=== PATIENT | male | born 1950 | race Two or more races ===

== ENCOUNTER 2018-07-25 02:10 | Inpatient (IN) | payer OTHER, MEDICAID ==
[~2018-07-25] VITALS: Ht 172.7 cm; Wt 133.8 kg
--- NOTE | 2018-07-25 02:15 | NUR ---
PT BIBRA FROM HOME COMPLAINING OF MIDSTERNAL CHEST PAIN RADIATING TO LEFT SHOULDER X3 HOURS DUPLICATING MACHINE MECHANIC. PT DESCRIBES PAIN PRESSURE AND TIGHT. PT RECEIVED 162MG ASPIRIN AND 3 SPRAY NITRO BY RA DUPLICATING MACHINE MECHANIC WITH NO RELIEF OF SYMPTOMS. PT APPEARS UNCOMFORTABLE WITH LABORED BREATHING. PT DENIES N/V/D, HEADACHE, DIZZINESS, ABDOMINAL PAIN. PT AAOX4. SKIN WARM AND INTACT. PLACED IN GOWN AND ON CONTINUOUS PAPER WOOD CUTTER. WILL CONTINUE TO MONITOR.
--- NOTE | 2018-07-25 02:18 | NUR ---
MD AT BEDSIDE FOR EVALUATION
[2018-07-25] MEDS ORDERED: NITROGLYCERIN PACKET 1 GM PACKET ONE (02:25)
[2018-07-25] MEDS ORDERED: ONDANSETRON HCL/PF 4 MG/2 ML VIAL ONE (02:25)
[2018-07-25] MEDS ORDERED: MORPHINE SULFATE INJ 10 MG/ML DISP.SYRIN ONE (02:25)
--- NOTE | 2018-07-25 02:25 | NUR ---
MAGNETIC RESONANCE IMAGING COORDINATOR AT BEDSIDE FOR BLOOD DRAW
[2018-07-25] MEDS ORDERED: NITROGLYCERIN PACKET 1 GM PACKET TD ONE (02:30)
[2018-07-25] MEDS ORDERED: MORPHINE SULFATE INJ 2 MG/ML DISP.SYRIN IV ONE (02:30)
[2018-07-25] MEDS ORDERED: ONDANSETRON HCL/PF - ER 4 MG/2 ML VIAL IV ONE (02:30)
[2018-07-25 02:39] LABS: BASOPHILS % (AUTO) 0.5 % (0.0-2.0); EOSINOPHILS % (AUTO) 4.9 % (0.0-6.0); HEMATOCRIT 24 % (39-51); LYMPHOCYTES # (AUTO) 0.4 /CMM (0.8-4.8); LYMPHOCYTES % (AUTO) 5.1 % (20.0-44.0); MEAN CORPUSCULAR HGB CONC 34 g/dl (31.0-36.0); MEAN CORPUSCULAR VOLUME 91 fL (80-96); MONOCYTES # (AUTO) 0.6 /CMM (0.1-1.30); NEUTROPHILS # (AUTO) 7.2 /CMM (1.8-8.9); NEUTROPHILS % (AUTO) 82.5 % (43.0-81.0); PLATELET COUNT (AUTO) 240 /CMM (150-450); RED BLOOD CELL COUNT(AUTO) 2.59 MIL/uL (4.5-6.0); WHITE BLOOD COUNT (AUTO) 8.7 K/uL (4.3-11.0)
--- NOTE | 2018-07-25 02:54 | NUR ---
RADIOLOGY AT BEDSIDE FOR CXR
[2018-07-25 03:01] LABS: ALBUMIN 2.8 g/dL (3.4-5.0); BILIRUBIN,DIRECT 0.1 mg/dL (0.0-0.2); BILIRUBIN,TOTAL 0.7 mg/dL (0.2-1.0); CALCIUM, SERUM 8.3 mg/dL (8.5-10.1); TOTAL PROTEIN, SERUM 6.9 g/dL (6.4-8.2)
[2018-07-25] MEDS ORDERED: FUROSEMIDE (03:16)
[2018-07-25 03:22] LABS: MAGNESIUM 2.2 mg/dL (1.8-2.4); PHOSPHORUS 6.9 mg/dL (2.5-4.9)
[2018-07-25] MEDS ORDERED: ENOXAPARIN SODIUM 80 MG/0.8 ML DISP.SYRIN SQ ONE (03:28)
[2018-07-25] MEDS ORDERED: ENOXAPARIN SODIUM 30 MG/0.3 ML DISP.SYRIN ONE (03:28)
[2018-07-25] MEDS ORDERED: ENOXAPARIN SODIUM 30 MG/0.3 ML DISP.SYRIN SQ ONE (03:30)
--- NOTE | 2018-07-25 03:39 | NUR ---
RECEIVED VERBAL AUTH FROM TEODORA TIRADO WELDING FOREMAN TO ADMIT PT HERE AT [facility]. "THE SYSTEM IS DOWN AND CANNOT GIVE AUTH NUMBER RIGHT NOW BUT WILL GIVE IT WHEN SYSTEM IS BACK ON".
--- NOTE | 2018-07-25 03:40 | NUR ---
DR. PATE ON THE PHONE WITH DR. REYES
--- NOTE | 2018-07-25 03:55 | NUR ---
DUPLEX VENOUS AT BEDSIDE
[2018-07-25] MEDS ORDERED: FUROSEMIDE 20 MG/2 ML VIAL IV SCH (04:00)
--- NOTE | 2018-07-25 04:07 | NUR ---
GAVE REPORT TO ALEJANDRA ROBLEDO FOR LEXI
--- NOTE | 2018-07-25 04:33 | NUR ---
PT TRANSFERRED PER [facility]
[2018-07-25 04:50] VITALS: BP 152/87
[2018-07-25] MEDS ORDERED: ACETAMINOPHEN 325 MG TABLET PO PRN (05:00)
[2018-07-25] MEDS: METOPROLOL TARTRATE 50 MG TABLET PO SCH ×3 (05:00→21:00)
--- NOTE | 2018-07-25 05:00 | NUR ---
EPOXY COATINGS INSTALLER ADMITTING NOTES RECEIVED REPORT FROM MANJU ROBLEDO. PATIENT ADMITTED TO ROOM 103 W/ DX RENAL FAILURE UNDER CARE OF DR REYES. PATIENT A/A/O X3, ABLE TO MAKE NEEDS KNOWN. BREATHING EVEN & UNLABORED, TOLERATING O2 @ 2LPM VIA NC. C/O OF NON-RADIATING CHEST PAIN W/ PAIN LEVEL 9/10. DESCRIBED IT PRESSURE AND TIGHTNESS. SINUS TACH NOTED ON TELE MONITOR W/ HR 116. NITRO PATCH NOTED ON PATIENT & PAIN MED TO BE GIVEN. DENIES ANY OTHER PAIN. DENIES NAUSEA OR DIZZINESS. LEFT AC IV #20 INTACT & PATENT W/ DRESSING CDI. PATIENT ABLE TO USE URINAL. ORIENTED TO STAFF & ROOM. SAFETY MEASURES IN PLACE W/ SIDE RAILS UP & BED ALARM ON. INSTRUCTED TO USE CALL LIGHT FOR ASSISTANCE. WILL CONTINUE TO MONITOR.
[2018-07-25] MEDS: HYDROCODONE/APAP 5/325MG 1 EACH TABLET PO PRN ×2 (05:20→15:08)
--- NOTE | 2018-07-25 05:30 | NUR ---
COMMERCIAL CONSTRUCTION ESTIMATOR NOTES SPOKE TO DR REYES REGARDING PATIENT'S PAIN LEVEL & ASKED FOR ADDITIONAL PAIN MEDICATION. RECEIVED NEW ORDER FOR NORCO 5-325 MG PRN Q4H. ALSO INFORMED DR REYES OF PATIENT'S SENSITIVITY TO ASPIRIN & REFUSES TO CONTINUE TAKING ASPIRIN DURING HOSPITAL STAY. PER DR REYES, OK TO DC W/ NO ADDITIONAL MEDICATION ORDERS.
[2018-07-25 07:32] LABS: BASOPHILS % (AUTO) 0.6 % (0.0-2.0); EOSINOPHILS % (AUTO) 1.7 % (0.0-6.0); HEMATOCRIT 23 % (39-51); HEMOGLOBIN 7.6 g/dL (13.5-17.5); LYMPHOCYTES # (AUTO) 0.4 /CMM (0.8-4.8); LYMPHOCYTES % (AUTO) 4.7 % (20.0-44.0); MEAN CORPUSCULAR HGB CONC 34 g/dl (31.0-36.0); MEAN CORPUSCULAR VOLUME 91 fL (80-96); MONOCYTES # (AUTO) 0.7 /CMM (0.1-1.30); MONOCYTES % (AUTO) 8.4 % (2.0-12.0); NEUTROPHILS # (AUTO) 7.4 /CMM (1.8-8.9); NEUTROPHILS % (AUTO) 84.6 % (43.0-81.0); PLATELET COUNT (AUTO) 213 /CMM (150-450); RED BLOOD CELL COUNT(AUTO) 2.47 MIL/uL (4.5-6.0); WHITE BLOOD COUNT (AUTO) 8.7 K/uL (4.3-11.0)
[2018-07-25 07:51] LABS: CALCIUM, SERUM 8.4 mg/dL (8.5-10.1); CREATININE 5.7 mg/dL (0.6-1.3); POTASSIUM 4.6 mmol/L (3.5-5.1)
--- NOTE | 2018-07-25 07:53 | NUR ---
RN AM SHIFT NOTE RECEIVED PATIENT FROM PM NURSE, COMPLAINT OF CHEST PAIN, AWAKE ALERT AND ORIENTED X4. WILL SPEAK TO DR. REYES REGARDING PAIN, AWAITING HOME MED LIST FROM . FOLLOW UP WITH MARIEL REGARDING REPLACEMENT OF ASPRIN REGIMEN FOR PATIENT.
[2018-07-25 08:00] VITALS: BP 150/112
[2018-07-25] MEDS ORDERED: ONDANSETRON HCL/PF 4 MG/2 ML VIAL IV PRN (09:00)
[2018-07-25] MEDS ORDERED: ASPIRIN EC 81 MG TABLET.DR PO SCH (09:00)
[2018-07-25] MEDS: AMLODIPINE BESYLATE 2.5 MG TABLET PO SCH (09:31)
[2018-07-25] MEDS: HYDROMORPHONE INJ 2 MG/ML DISP.SYRIN IV PRN (09:44)
[2018-07-25] MEDS: CEFTRIAXONE 1 G in IV D5W 50 ML IV SCH (09:48)
--- NOTE | 2018-07-25 10:41 | NUR ---
WOUND CARE CONSULT: PT PRESENTS WITH REDNESS AND SWELLING TO BILATERAL LOWER LEGS WITH ESCHAR TO RT LATERAL FOOT AND DRY LESIONS TO LEFT ANTERIOR LOWER LEG, PRESENT ON ADMISSION. RECOMMEND DPM CONSULT. PT IS INDEPENDENT WITH BED MOBILITY AND CONTINENT. DISCUSSED SKIN PROTECTION AND CARE WITH NURSING STAFF. LEGS ELEVATED. WILL SEE PRN. SHETH IN AGREEMENT WITH PLAN OF CARE. Addendum: 07/25/18 at 1043 by CLIFFORD OLIVERA Amended: Links added. Addendum: 07/25/18 at 1044 by CLIFFORD AZULU PT DEMONSTRATES ABILITY TO TURN AND RESPOSITION IN BED AND STATES DOES NOT NEED BARIATRIC BED. PT ON GALINA ISOFLEX LOW AIRLOSS BED.
[2018-07-25] MEDS ORDERED: BUMETANIDE INJ 4 MG in IV NS 0.9% 24 ML IV ONE (11:00)
[2018-07-25] MEDS ORDERED: EPOETIN ALFA (20,000 UNIT) 20,000 UNIT/ML VIAL SQ ONE (11:00)
[2018-07-25] MEDS: AZITHROMYCIN 500 MG in IV D5W 250 ML IV SCH (11:04)
[2018-07-25 11:22] LABS: IRON, SERUM 19 ug/dl (50-175); TOTAL IRON BINDING CAPACITY 260 ug/dl (250-450)
[2018-07-25] MEDS: METOLAZONE 2.5 MG TABLET PO SCH (11:34)
[2018-07-25 12:00] VITALS: BP 110/76
[2018-07-25] MEDS: SEVELAMER CARBONATE 800 MG TABLET PO SCH ×2 (12:02→17:00)
[2018-07-25 16:00] VITALS: BP 105/52
--- NOTE | 2018-07-25 18:30 | NUR ---
TRAM DRIVER CLOSING NOTES PT IS LYING ON BED.STRICT I&O SHOULD BE MONITOR.ALERT/ORIENTED X3.WITH NC 2L O2 CONTINUOUSLY.IV LINE CHANGED TO LEFT HAND G22,SITE IS CLEAN AND DRY.NO INFILTRATION NOTED.ENDORSED TO FIRING PIN GAUGER RN FOR LEXI.
[2018-07-25 20:00] VITALS: BP 116/81
[2018-07-26] VITALS (7 sets, daily range): BP systolic 101–129; BP diastolic 60–91
--- NOTE | 2018-07-26 02:27 | NUR ---
TELE-1/CAPPER MACHINE OPERATOR REPORT TO [facility] FOR CONT OF CARE. Addendum: 07/26/18 at 0228 by IDRIS MCKEON LVN REPORT TO [facility] FOR CONT OF CARE.
--- NOTE | 2018-07-26 02:38 | NUR ---
FISH LIVER SORTER NOTE PATIENT RECEIVED IN BED SLEEPING, BUT EASILY AWOKEN. PATIENT HAS NO C/O AT THIS TIME, JUST WISHES TO SLEEP. PATIENT ST ON THE MONITOR 114, PATIENT DENIES CHEST PAIN. RN WILL CONTINUE TO MONITOR PATIENT.
--- NOTE | 2018-07-26 06:54 | NUR ---
SHOP TAILOR PT TOLERTED THE NIGHT WELL NO S/S OF DISTRESS NO ACUTE CHANGES WILL ENDORSE TO AM FO LEXI.
[2018-07-26] MEDS ORDERED: TAMS0.4C34 PO (07:17)
[2018-07-26] MEDS ORDERED: FURO20TA4 PO (07:17)
[2018-07-26] MEDS ORDERED: LORA10TA7 PO (07:17)
[2018-07-26 07:35] LABS: BASOPHILS # (AUTO) 0.1 /CMM (0.0-0.2); BASOPHILS % (AUTO) 1.2 % (0.0-2.0); EOSINOPHILS % (AUTO) 6.8 % (0.0-6.0); HEMATOCRIT 22 % (39-51); HEMOGLOBIN 7.4 g/dL (13.5-17.5); LYMPHOCYTES # (AUTO) 0.9 /CMM (0.8-4.8); LYMPHOCYTES % (AUTO) 13.9 % (20.0-44.0); MEAN CORPUSCULAR HGB CONC 33 g/dl (31.0-36.0); MEAN CORPUSCULAR VOLUME 91 fL (80-96); MONOCYTES # (AUTO) 0.9 /CMM (0.1-1.30); MONOCYTES % (AUTO) 13.6 % (2.0-12.0); NEUTROPHILS # (AUTO) 4.2 /CMM (1.8-8.9); NEUTROPHILS % (AUTO) 64.5 % (43.0-81.0); PLATELET COUNT (AUTO) 225 /CMM (150-450); RED BLOOD CELL COUNT(AUTO) 2.44 MIL/uL (4.5-6.0); WHITE BLOOD COUNT (AUTO) 6.4 K/uL (4.3-11.0)
--- NOTE | 2018-07-26 07:40 | NUR ---
FACTORY SUPERVISOR OPENING NOTES RECEIVED PATIENT A/O X4 IN BED. ON 2 LTRS NASAL CANNULA SATURATING 98% NO SIGNS OR SYMPTOMS OF RESPIRATORY DISTRESS OR ACUTE PAIN. USING URINAL DRAINING CLEAR YELLOW URINE. ON TELE MONITOR ST 115. BLE CELLULITIS ELEVATED . (L) HAND # 22 GAUGE SALINE LOCK. AWAITING LABS . SAFETY PRECAUTIONS IN PLACE CALL LIGHT WITHIN REACH BED IN LOW POSITION WILL CONT TO MONITOR
[2018-07-26 07:44] LABS: CALCIUM, SERUM 7.4 mg/dL (8.5-10.1); CREATININE 6.2 mg/dL (0.6-1.3); POTASSIUM 4.8 mmol/L (3.5-5.1)
[2018-07-26] MEDS: SEVELAMER CARBONATE 800 MG TABLET PO SCH ×3 (08:18→17:54)
[2018-07-26] MEDS: METOPROLOL TARTRATE 50 MG TABLET PO SCH ×2 (08:19→21:31)
[2018-07-26] MEDS: AMLODIPINE BESYLATE 2.5 MG TABLET PO SCH (08:19)
[2018-07-26] MEDS: METOLAZONE 2.5 MG TABLET PO SCH (08:19)
[2018-07-26] MEDS ORDERED: METO50TA16 PO (08:35)
[2018-07-26] MEDS ORDERED: AMLO2.5T4 PO (08:35)
[2018-07-26] MEDS ORDERED: SEVE800T7 PO (08:35)
[2018-07-26] MEDS ORDERED: LEVO500T75 PO (08:36)
--- NOTE | 2018-07-26 08:59 | NUR ---
CORPORATE DIRECTOR NOTES ORDERS FOR DISCHARGE SPOKE WITH JESSI KAMARA IN [facility] TO AFTER D/C ORDERS PER DOCTOR AMY F/U NEPHRO CONSULT SLEEP STUDY AND PCP
[2018-07-26] MEDS: CEFTRIAXONE 1 G in IV D5W 50 ML IV SCH (09:11)
[2018-07-26] MEDS: AZITHROMYCIN 500 MG in IV D5W 250 ML IV SCH (10:13)
--- NOTE | 2018-07-26 11:31 | NUR ---
SUPERCHARGE REPAIR SUPERVISOR NOTES ENTERED ROOM @ 1115 PATIENT RETURNED FROM RESTROOM LAYING FLAT IN BED COUGHING ASKED IF HE WAS OK NON-RESPONSIVE PALE DIAPHORETIC WITH [employer] P[employer]SE CALLED FOR MAIL TECHNICIAN HOOKED PATIENT TO 10 LTS O2 FLOOR RT WENT TO GET AMBU BAG STARTED CHEST COMPRESSION X 2ROUNDS COLOR SLOWLY COMING BACK MAIL TECHNICIAN ARRIVED BLOOD SUGAR 130 PATIENT ALERT SAYS HE WAS IN BATHROOM HAVING BOWEL MOVEMENT PRIOR RO TAKING A NAP. ASSESSED BY MAIL TECHNICIAN SPOKE WITH DR REYES DISCONTINUE DISCHARGE AND ADMIT FOR 1 MORE NIGHT FOR OBSERVATION . ADAN BOWEN NOTIFED WELL
--- NOTE | 2018-07-26 12:14 | NUR ---
SAP PI DEVELOPER NOTES PATIENT ASSISTED TO RESTROOM WAITING WHILE RN WAITING OUTSIDE. ASSISTED BACK TO BED C/O SHARP STERNAL PAIN. DR REYES NOTIFIED. OFFERED PATIENT DILAUDID AND PATIENT REFUSED
[2018-07-26] MEDS: HYDROMORPHONE INJ 2 MG/ML DISP.SYRIN IV PRN (12:32)
--- NOTE | 2018-07-26 14:23 | NUR ---
SORTING MACHINE ATTENDANT NOTES HANDOFF REPORT GIVEN TO PEDRO ROBLEDO PATIENT SLEEEPING IN BED ABLE TO BE AROUSED WITH TOUCH AND VOICE. NO EPISODES OF BRADYCARDIA ON 6 LTRS NC . SAFETY PRECAUTIONS IN PLAC ECALL LIGHT WITHIN REACH
--- NOTE | 2018-07-26 18:53 | NUR ---
RN NOTE.PT IS AWAKE, ALERT, FOLLOW COMMANDS. S/P CPR. TODAY. PT DONT" REMEMBER WHAT HAPPENED. VITALS IS STABLE. OXYGEN 6L VIA NASAL CANNULA. SAT 98%. NO ACUTE DISTRESS NOTED. CHIEF PHYSICAL THERAPIST SHOWING NSR.
[2018-07-27] VITALS: BP 96/58
[2018-07-27 04:00] VITALS: BP 121/92
--- NOTE | 2018-07-27 07:15 | NUR ---
CRIMPER ASSEMBLER OPENING NOTES RECEIVED PATIENT A/O X4 IN BED. ON 2 LTRS NASAL CANNULA SATURATING 98% NO SIGNS OR SYMPTOMS OF RESPIRATORY DISTRESS OR ACUTE PAIN. USING URINAL DRAINING CLEAR YELLOW URINE. ON TELE MONITOR ST 115. BLE CELLULITIS ELEVATED . (L) HAND # 22 GAUGE SALINE LOCK POSSIBLE DISCHARGE TO HOME TODAY SAFETY PRECAUTIONS IN PLACE CALL LIGHT WITHIN REACH BED IN LOW POSITION WILL CONT TO MONITOR
[2018-07-27 07:19] LABS: BASOPHILS # (AUTO) 0.1 /CMM (0.0-0.2); BASOPHILS % (AUTO) 1.3 % (0.0-2.0); EOSINOPHILS % (AUTO) 6.8 % (0.0-6.0); HEMATOCRIT 23 % (39-51); HEMOGLOBIN 7.9 g/dL (13.5-17.5); LYMPHOCYTES # (AUTO) 0.9 /CMM (0.8-4.8); LYMPHOCYTES % (AUTO) 11.8 % (20.0-44.0); MEAN CORPUSCULAR HGB CONC 34 g/dl (31.0-36.0); MEAN CORPUSCULAR VOLUME 91 fL (80-96); MONOCYTES # (AUTO) 0.9 /CMM (0.1-1.30); MONOCYTES % (AUTO) 12.4 % (2.0-12.0); NEUTROPHILS % (AUTO) 67.7 % (43.0-81.0); PLATELET COUNT (AUTO) 240 /CMM (150-450); RED BLOOD CELL COUNT(AUTO) 2.54 MIL/uL (4.5-6.0); WHITE BLOOD COUNT (AUTO) 7.3 K/uL (4.3-11.0)
[2018-07-27 07:43] LABS: ALBUMIN 2.6 g/dL (3.4-5.0); BILIRUBIN,TOTAL 0.7 mg/dL (0.2-1.0); CALCIUM, SERUM 8.9 mg/dL (8.5-10.1); CREATININE 6.9 mg/dL (0.6-1.3); MAGNESIUM 2.4 mg/dL (1.8-2.4); PHOSPHORUS 7.9 mg/dL (2.5-4.9); POTASSIUM 4.8 mmol/L (3.5-5.1); TOTAL PROTEIN, SERUM 6.9 g/dL (6.4-8.2)
[2018-07-27 08:00] VITALS: BP 127/85
[2018-07-27] MEDS: SEVELAMER CARBONATE 800 MG TABLET PO SCH ×3 (08:06→18:16)
[2018-07-27] MEDS: METOLAZONE 2.5 MG TABLET PO SCH (08:07)
[2018-07-27] MEDS: METOPROLOL TARTRATE 50 MG TABLET PO SCH (08:07)
--- NOTE | 2018-07-27 08:30 | NUR ---
TURKEY FARMER NOTES DR REYES TO SEE PATIENT ORDERS FOR CXR BMP AND US OF CAROTID. PENDING RESULTS OF BEING D/C BACK TO HOME.
[2018-07-27] MEDS: CEFTRIAXONE 1 G in IV D5W 50 ML IV SCH (09:10)
[2018-07-27] MEDS: AZITHROMYCIN 500 MG in IV D5W 250 ML IV SCH (09:59)
[2018-07-27 12:00] VITALS: BP 90/53
--- NOTE | 2018-07-27 12:00 | NUR ---
MOLDING ENGINEER NOTES DR REYES INFORMED OF RESULTS OF US CAROTID NEW ORDERS FOR LIPITOR TO BE STARTED QHS WHEN D/C HOME. CONFIRMED ORDERS OF NEPHRO CONSULT /SLEEP STUDY AND PCP APPT IN THE NEXT WEEK. AWAIRING FOR CW TO ARRANGE FOR P/U Addendum: 07/27/18 at 1322 by AUBREE JACKSON RN ORDERS ALSO FOR HOME HEALTH
[2018-07-27] MEDS ORDERED: ATOR20TA PO (12:29)
--- NOTE | 2018-07-27 13:15 | NUR ---
SOFT WORK WRAPPER LAYER AND EXAMINER NOTES ENTERED PATIENTS ROOM FULLY DRESSED THINKING HE WAS GOING HOME .TOOK OFF ALL LEADS AND PULLED OUT IV. INSPECTED IV CATH INTACT PHOTOS TAKEN REFUSED PHOTOS OF PERINEAL AREA.
--- NOTE | 2018-07-27 15:04 | NUR ---
MIS SPECIALIST NOTE [facility] TO ARRANGE P/U AT [phone]
[2018-07-27 16:00] VITALS: BP 109/75
--- NOTE | 2018-07-27 19:00 | NUR ---
RN CLOSING NOTES REPORT GIVEN TO NOC RN. AWAITING FOR TRANSPORT TO P/U PATIENT ALL MED RECON AND DISCHARGE ORDERS DONE
--- NOTE | 2018-07-27 20:00 | NUR ---
WEB PRODUCTION ARTIST NOTES PT D/C STABLE ON STRETCHER WITH EMT. GIVEN D/C INSTRUCTIONS AND PT SIGNED PAPERWORKS.
[2018-07-28 14:15] LABS: PTH, INTACT 252 pg/mL (15-65)
[2018-07-30 06:06] LABS: *SPE A/G RATIO 0.8 (0.7-1.7); *SPE ALBUMIN 2.8 g/dL (2.9-4.4); *SPE ALPHA-1-GLOBULIN 0.4 g/dL (0.0-0.4); *SPE ALPHA-2-GLOBULIN 0.8 g/dL (0.4-1.0); *SPE BETA GLOBULIN 0.8 g/dL (0.7-1.3); *SPE GLOBULIN, TOTAL 3.3 g/dL (2.2-3.9); *SPE M-SPIKE Not Observed g/dL (Not Observed); *SPEGAMMA GLOBULIN 1.4 g/dL (0.4-1.8)
== END 2018-07-27 19:35 | disposition home health service (06) | DRG 193 ==
LOC: ER 02:12 → TELE-TD 03:55 → TELE1 04:50
PROVIDERS: ADMIT Internal Medicine; ATTEND Internal Medicine
DX: J15.9 Unspecified bacterial pneumonia (principal); N18.6 End stage renal disease; L03.115 Cellulitis of right lower limb; I12.0 Hypertensive chronic kidney disease with stage 5 chronic kidney disease or end stage renal disease; Z68.41 Body mass index [BMI] 40.0-44.9, adult; J81.1 Chronic pulmonary edema; I87.2 Venous insufficiency (chronic) (peripheral); R09.1 Pleurisy; D63.1 Anemia in chronic kidney disease; M48.00 Spinal stenosis, site unspecified; I27.20 Pulmonary hypertension, unspecified; R55 Syncope and collapse; Z87.891 Personal history of nicotine dependence; E66.01 Morbid (severe) obesity due to excess calories; L97.519 Non-pressure chronic ulcer of other part of right foot with unspecified severity; E83.39 Other disorders of phosphorus metabolism
CPT/HCPCS: 36415; 71045-TC; 80048-TC; 80053-TC; 80061-TC; 80076-TC; 82550-TC; 82962-TC; 83540-TC; 83735-TC; 83880; 83970; 84100-TC; 84155; 84165; 84484-TC; 85025-TC; 85378-TC; 86850-TC; 87081-TC; 93307-TC; 93880-TC; 93970-TC; A6402; G0378; J0456; J0696; J0885; J1170; J1650; J1940; J2270; J2405; J3490; J7030; J7060

== ENCOUNTER 2019-01-20 19:59 | Emergency (ER) | payer MEDICARE, MEDICAID ==
[~2019-01-20] VITALS: Ht 172.7 cm; Wt 115.2 kg
[~2019-01-20 19:59] MED LIST: ATOR20TA PO; FURO20TA4 PO; LEVO500T75 PO; LORA10TA7 PO; METO50TA16 PO; SEVE800T7 PO; TAMS0.4C34 PO
[2019-01-20 20:47] LABS: BASOPHILS # (AUTO) 0.1 /CMM (0.0-0.2); BASOPHILS % (AUTO) 1.3 % (0.0-2.0); EOSINOPHILS % (AUTO) 4.9 % (0.0-6.0); HEMATOCRIT 35 % (39-51); HEMOGLOBIN 11.8 g/dL (13.5-17.5); LYMPHOCYTES # (AUTO) 0.9 /CMM (0.8-4.8); LYMPHOCYTES % (AUTO) 19.3 % (20.0-44.0); MEAN CORPUSCULAR HGB CONC 33 g/dl (31.0-36.0); MEAN CORPUSCULAR VOLUME 100 fL (80-96); MONOCYTES # (AUTO) 0.7 /CMM (0.1-1.30); MONOCYTES % (AUTO) 13.5 % (2.0-12.0); PLATELET COUNT (AUTO) 185 /CMM (150-450); RED BLOOD CELL COUNT(AUTO) 3.55 MIL/uL (4.5-6.0); WHITE BLOOD COUNT (AUTO) 4.9 K/uL (4.3-11.0)
[2019-01-20] MEDS: IV NS 0.9% 500 ML BAG IV ONE (20:47)
--- NOTE | 2019-01-20 20:49 | NUR ---
BIBPA. C/O "HAVING ISSUES WITH DYALISIS PORT ON R SIDE OF CHEST" -SOB NOTED. BILAT EDEMA NOTED. PT AOX4. VSS
[2019-01-20 20:58] LABS: CALCIUM, SERUM 9.3 mg/dL (8.5-10.1); CREATININE 4.1 mg/dL (0.6-1.3); POTASSIUM 4.9 mmol/L (3.5-5.1)
[2019-01-20 21:12] LABS: ALBUMIN 3.3 g/dL (3.4-5.0); BILIRUBIN,DIRECT 0.5 mg/dL (0.0-0.2); BILIRUBIN,TOTAL 1.2 mg/dL (0.2-1.0)
[2019-01-20 21:14] LABS: APPEARANCE,URINE Clear (CLEAR); BILIRUBIN,URINE Negative (NEGATIVE); BLOOD, URINE Small Ery/uL (NEGATIVE); COLOR,URINE Yellow (YELLOW); KETONES,URINE Negative (NEGATIVE); LEUKOCYTE ESTERASE ,URINE Negative (NEGATIVE); NITRITE, URINE Negative (NEGATIVE); PH,URINE 8.5 (5.0-8.0); PROTEIN,URINE >=300 mg/dl (NEGATIVE); UGLUCOSE Negative (NEGATIVE); UROBILINOGEN,URINE 0.2 EU/dL (0.2)
[2019-01-20 21:24] LABS: BACTERIA,URINE Few /HPF (None Seen); SQUAMOUS EPITHELIAL CELL,UR Rare /HPF (None Seen); WBC,URINE 0-2 /HPF (0-3)
--- NOTE | 2019-01-20 22:33 | NUR ---
JUAN PABLO RAYGOZA 60 MIN ([id number]), TRIP # [id number]
[2019-01-21 00:28] VITALS: BP 144/81
== END 2019-01-21 00:29 | disposition home or self-care (01) ==
LOC: ER 20:07
DX: Z49.01 Encounter for fitting and adjustment of extracorporeal dialysis catheter (principal); I12.0 Hypertensive chronic kidney disease with stage 5 chronic kidney disease or end stage renal disease; N18.6 End stage renal disease; Z88.6 Allergy status to analgesic agent; Z60.2 Problems related to living alone; Z79.899 Other long term (current) drug therapy
CPT/HCPCS: 36415; 71045; 80048; 80076; 81001; 83605; 84484; 85025; 85730; 87040 ×2; 87086; 93005; 99284; J7040; 81000-TC

== ENCOUNTER 2020-03-31 12:19 | Emergency (ER) | payer OTHER ==
[~2020-03-31] VITALS: Ht 175.3 cm; Wt 142.9 kg
[~2020-03-31 12:19] MED LIST changes: +LEVO500T23 PO; -LEVO500T75 PO
--- NOTE | 2020-03-31 12:28 | NUR ---
[id number] home c/o generalized bodyache and weakness. bg 114 dining room captain per ems, found down in floor. unable to get up. Patient a/ox4, breathing rapid and short of breath, on room air with spo2 in the 80s. applied o2 at 3lpm via nc with spo2 increased to 100%. Established an iv line on left forearm g18, blood drawn and given to lab. Attached to the executive kitchen manager.
[2020-03-31] MEDS ORDERED: ONDANSETRON HCL/PF 4 MG/2 ML VIAL IVP ONE (12:30)
[2020-03-31] MEDS ORDERED: LORAZEPAM INJ 2 MG/ML VIAL IVP ONE (12:30)
[2020-03-31] MEDS ORDERED: MORPHINE SULFATE INJ 2 MG/ML DISP.SYRIN IV ONE (12:30)
[2020-03-31] MEDS ORDERED: ONDANSETRON HCL/PF 4 MG/2 ML VIAL ONE (12:33)
[2020-03-31] MEDS ORDERED: MORPHINE SULFATE INJ 4 MG/ML DISP.SYRIN ONE (12:33)
[2020-03-31] MEDS ORDERED: LORAZEPAM INJ 2 MG/ML VIAL ONE (12:34)
--- NOTE | 2020-03-31 12:35 | NUR ---
PATIENT STS HE'S UNABLE TO PROVIDE URINE AT THIS TIME.
[2020-03-31] MEDS ORDERED: METO-358 PO (12:40)
[2020-03-31] MEDS ORDERED: HYDR-4077 PO (12:40)
[2020-03-31] MEDS ORDERED: HYDR-3980 MT (12:41)
[2020-03-31] MEDS ORDERED: LOSA25TA27 PO (12:41)
[2020-03-31] MEDS ORDERED: POTA10TA17 PO (12:41)
[2020-03-31] MEDS ORDERED: RAME8TAB24 PO (12:41)
[2020-03-31] MEDS ORDERED: APIX2.5T PO (12:41)
[2020-03-31] MEDS ORDERED: GABA300C PO (12:41)
[2020-03-31 12:52] LABS: BASOPHILS % (AUTO) 0.4 % (0.0-2.0); EOSINOPHILS % (AUTO) 0.5 % (0.0-6.0); HEMATOCRIT 34 % (39-51); LYMPHOCYTES # (AUTO) 0.3 /CMM (0.8-4.8); MEAN CORPUSCULAR HGB CONC 32 g/dl (31.0-36.0); MEAN CORPUSCULAR VOLUME 100 fL (80-96); MONOCYTES # (AUTO) 0.9 /CMM (0.1-1.30); MONOCYTES % (AUTO) 6.9 % (2.0-12.0); NEUTROPHILS # (AUTO) 11.2 /CMM (1.8-8.9); NEUTROPHILS % (AUTO) 90.2 % (43.0-81.0); PLATELET COUNT (AUTO) 160 /CMM (150-450); RED BLOOD CELL COUNT(AUTO) 3.46 MIL/uL (4.5-6.0); WHITE BLOOD COUNT (AUTO) 12.4 K/uL (4.3-11.0)
--- NOTE | 2020-03-31 13:00 | NUR ---
INFORMED DR. MCUQEEN PATIENT UNABLE TO PROVIDE URINE AT THIS TIME. PER , ITS OK.
[2020-03-31 13:01] LABS: CALCIUM, SERUM 8.9 mg/dL (8.5-10.1); CARBON DIOXIDE 24 mmol/L (21-32); CHLORIDE 100 mmol/L (98-107); CREATININE 3.9 mg/dL (0.6-1.3); GLUCOSE 96 mg/dL (74-106); POTASSIUM 5.1 mmol/L (3.5-5.1); SODIUM SERUM 137 mmol/L (136-145); UREA NITROGEN, BLOOD 31 mg/dL (7-18)
[2020-03-31 13:15] LABS: ALANINE AMINOTRANSFERASE 38 U/L (12-78); ALBUMIN 3.7 g/dL (3.4-5.0); ALKALINE PHOSPHATASE 356 U/L (46-116); ASPARTATE AMINOTRANSFERASE 51 U/L (15-37); B-TYPE NATRIURETIC PEPTIDE 22198 PG/ML (0-125); BILIRUBIN,TOTAL 1.3 mg/dL (0.2-1.0); TOTAL PROTEIN, SERUM 8.3 g/dL (6.4-8.2)
[2020-03-31 13:35] LABS: D-DIMER 10.54 mg/L(FEU (0.17-0.50)
[2020-03-31 13:40] LABS: CREATINE KINASE, TOTAL 164 U/L (39-308); FERRITIN 208 ng/mL (8-388)
[2020-03-31 13:46] LABS: C-REACTIVE PROTEIN 3.8 mg/dL (0.0-0.9)
--- NOTE | 2020-03-31 13:49 | NUR ---
PATIENT ASLEEP, AROUSABLE TO STIMULI. NO DISTRESS NOTED. VITALS STABLE.
--- NOTE | 2020-03-31 15:37 | NUR ---
SPOKE TO CATERING CONVENTION SERVICES MANAGER
[2020-03-31] MEDS ORDERED: PIPERACILLIN /TAZOBACTAM 2.25 G in IV D5W 50 ML IV ONE (16:00)
[2020-03-31] MEDS ORDERED: VANCOMYCIN 1 GM in IV D5W 250 ML IV ONE (16:00)
--- NOTE | 2020-03-31 17:17 | NUR ---
ATTEMPTED TO CONTACT BUILDING CONSTRUCTION INSPECTOR FOR [facility] TO F/U TX STATUS
--- NOTE | 2020-03-31 17:39 | NUR ---
PER KAZ ZHONG, PATIENT ACCEPTED BY DR. HERRING AT [facility], CM WILL CALL BACK FOR MORE INFO.
--- NOTE | 2020-03-31 17:59 | NUR ---
BENJAMIN FROM ADMITTING ASKED IF WE COULD ADMIT THE PT. SINCE CM IS DEMANDING RAPID COVID TEST. AND WE HAVE ONLY DONE PCR. DR. CLEMONS INFORMED, AND SAID THAT HE HAS SPOKEN WITH THE ACCEPTING MD AND PT IS SCHEDULED TO GO TO [facility]. PT WILL CONTINUE TO GO TO [facility].
--- NOTE | 2020-03-31 18:02 | NUR ---
RAPID COVID TEST ORDERED PER CM'S REQUEST
--- NOTE | 2020-03-31 18:27 | NUR ---
COVID ANTIGEN SWAB TEST DONE AND SENT TO LAB.
--- NOTE | 2020-03-31 18:32 | NUR ---
PATIENT RESTING, AROUSABLE TO STIMULI. NO DISTRESS NOTED. STILL ON O2 AT 3LPM VIA NC. NEEDS ATTENDED, KEPT COMFORTABLE.
--- NOTE | 2020-03-31 19:19 | NUR ---
COVID NEGATIVE RESULT PER LAB.
--- NOTE | 2020-03-31 19:19 | NUR ---
[facility] FAX [phone]
--- NOTE | 2020-03-31 19:20 | NUR ---
KAZ ZHONG PHONE NUMBER [phone]
--- NOTE | 2020-03-31 19:23 | NUR ---
FAXED COVID RESULTS TO [facility] CM
--- NOTE | 2020-03-31 20:19 | NUR ---
SPOKE TO REAL ESTATE ACCOUNTANT FARHEEN, STATES WILL CALL BACK IN 10 MINUTES REGARDING ROOM ASSIGNMENT
--- NOTE | 2020-03-31 20:38 | NUR ---
CALLED KAZ ZHONG LEFT VOICEMAIL REGARDING ADMISSION OF PT DUE TO CASE MANAGEMENT UNABLE TO FIND BED FOR MORE THAN 2 HOURS
--- NOTE | 2020-03-31 20:56 | NUR ---
SPOKE TO BELEN MCCURDY REGARDING PT ACCEPTED AT [facility] PT WILL GO TO ROOM 621 PHONE# FOR REPORT ACCEPTING [facility] ETA 0000 TRANSPORT AUTH #[id number] IF ABLE TO FIND [facility] ETA PER BELEN (KAZ)
--- NOTE | 2020-03-31 20:58 | NUR ---
CALLED [facility] NO BARIATRIC ANDREA CENTENO
--- NOTE | 2020-03-31 21:04 | NUR ---
[facility]ED [facility] AVAILABLE TARYN
--- NOTE | 2020-03-31 21:09 | NUR ---
CALLED [facility] NO [facility] BAR[facility] UNTIL AFTER 0300 HOURS
--- NOTE | 2020-03-31 21:14 | NUR ---
PT REMAINS ON 3L NC SAT 100%
--- NOTE | 2020-03-31 23:31 | NUR ---
REPORT GIVEN TO RAMON ROBLEDO FOR LEXI
--- NOTE | 2020-04-01 00:29 | NUR ---
[facility], NEW ETA 0130.
--- NOTE | 2020-04-01 01:53 | NUR ---
REPORT GIVEN TO JUAN BURK. PT TRANSFERED.
[2020-04-01 01:56] VITALS: BP 125/73
== END 2020-04-01 02:00 | disposition short-term general hospital (02) ==
LOC: ER 12:28
DX: G93.40 Encephalopathy, unspecified (principal); R52 Pain, unspecified; I13.11 Hypertensive heart and chronic kidney disease without heart failure, with stage 5 chronic kidney disease, or end stage renal disease; N18.6 End stage renal disease; Z99.2 Dependence on renal dialysis; R00.0 Tachycardia, unspecified; J90 Pleural effusion, not elsewhere classified; Z20.828 Contact with and (suspected) exposure to other viral communicable diseases
CPT/HCPCS: 36415; 70450; 71045; 80053; 82550; 82728; 83605; 83615; 83880; 84145; 84484; 85025; 85378; 85385; 85730; 86140; 87040 ×2; 87077 ×2; 87081; 87186; 87426; 93005; 96365; 96367; 96375; 99285; C9803 ×2; J2060; J2270; J2405; J2543; J7060; U0003

== ENCOUNTER 2020-06-15 00:13 | Emergency (ER) | payer MEDICARE, OTHER ==
[~2020-06-15] VITALS: Ht 175.3 cm; Wt 142.9 kg
[~2020-06-15 00:13] MED LIST changes: +APIX2.5T PO; -ATOR20TA PO; +GABA300C PO; +HYDR-3980 MT; +HYDR-4077 PO; -LEVO500T23 PO; -LORA10TA7 PO; +LOSA25TA27 PO; +METO-358 PO; -METO50TA16 PO; +POTA10TA17 PO; +RAME8TAB24 PO; -SEVE800T7 PO
--- NOTE | 2020-06-15 00:15 | NUR ---
PT ALICIA FROM HOME ON HOSPICE CARE, FALL FROM BED TODAY, ALTERED/NON VERBAL Addendum: 06/15/20 at 0048 by JOHNATHON PT ALICIA FROM HOME ON HOSPICE CARE D/T GLF. PER REPORT, PT ALTERED/NON VERBAL X 1 DAY. PT USUALLY VERBAL PER REPORT, RESPIRATIONS EVEN AND UNLABORED ON RA W/ NAD NOTED. PT CONNECTED TO THE FORGING ENGINEER AND POX.
--- NOTE | 2020-06-15 00:30 | NUR ---
PT TAKEN TO RADIOLOGY FOR CT
[2020-06-15] MEDS ORDERED: LIDOCAINE 2% JEL UROJET 10 ML MM ONE (00:32)
--- NOTE | 2020-06-15 00:46 | NUR ---
URINE COLLECTED AND SENT TO LAB
--- NOTE | 2020-06-15 00:47 | NUR ---
DISTRICT FIRE CHIEF AT BEDSIDE FOR BLOOD DRAW
[2020-06-15 00:51] LABS: BASOPHILS % (AUTO) 0.4 % (0.0-2.0); EOSINOPHILS % (AUTO) 1.9 % (0.0-6.0); HEMATOCRIT 39 % (39-51); HEMOGLOBIN 12.3 g/dL (13.5-17.5); LYMPHOCYTES # (AUTO) 0.3 /CMM (0.8-4.8); MEAN CORPUSCULAR HGB CONC 32 g/dl (31.0-36.0); MEAN CORPUSCULAR VOLUME 100 fL (80-96); MONOCYTES # (AUTO) 0.6 /CMM (0.1-1.30); MONOCYTES % (AUTO) 9.4 % (2.0-12.0); NEUTROPHILS # (AUTO) 5.4 /CMM (1.8-8.9); NEUTROPHILS % (AUTO) 83.3 % (43.0-81.0); PLATELET COUNT (AUTO) 169 /CMM (150-450); RED BLOOD CELL COUNT(AUTO) 3.86 MIL/uL (4.5-6.0); WHITE BLOOD COUNT (AUTO) 6.5 K/uL (4.3-11.0)
[2020-06-15 00:58] LABS: BILIRUBIN,URINE Negative (NEGATIVE); BLOOD, URINE Trace-intact Ery/uL (NEGATIVE); COLOR,URINE YELLOW (YELLOW); LEUKOCYTE ESTERASE ,URINE Trace (NEGATIVE); NITRITE, URINE Negative (NEGATIVE); PH,URINE 6.5 (5.0-8.0); PROTEIN,URINE >=300 mg/dl (NEGATIVE); UGLUCOSE Negative (NEGATIVE); UROBILINOGEN,URINE 0.2 EU/dL (0.2)
--- NOTE | 2020-06-15 01:31 | NUR ---
PT BACK FROM CT
[2020-06-15 01:51] LABS: CALCIUM, SERUM 9.8 mg/dL (8.5-10.1); CREATININE 4.4 mg/dL (0.6-1.3)
[2020-06-15 02:00] LABS: ALBUMIN 3.6 g/dL (3.4-5.0); BILIRUBIN,TOTAL 1.1 mg/dL (0.2-1.0); TOTAL PROTEIN, SERUM 8.5 g/dL (6.4-8.2)
--- NOTE | 2020-06-15 02:27 | NUR ---
called pt family [phone], voicemail left. waiting for call back
[2020-06-15 04:50] LABS: BACTERIA,URINE Few /HPF (None Seen); SQUAMOUS EPITHELIAL CELL,UR Few /HPF (None Seen); URINE AMORPHOUS URATE Few /HPF (None Seen)
--- NOTE | 2020-06-15 05:19 | NUR ---
spoke to GARTH from [facility] [phone]. working on transfer eta, waiting for call back
--- NOTE | 2020-06-15 05:34 | NUR ---
SPOKE TO GABRIEL, JARET 8AM, ALL TOWN TO TRANSPORT BACK HOME.
--- NOTE | 2020-06-15 08:22 | NUR ---
Patient discharged to home in stable condition. picked up by emt. pt will go via ambulance. Written and verbal after care instructions given to tool and die repairer. verbalizes understanding of instruction. IV removed. Catheter intact and site benign. Pressure and 4x4 applied to site. No bleeding noted.
[2020-06-15 08:23] VITALS: BP 142/88
== END 2020-06-15 08:24 | disposition home or self-care (01) ==
LOC: ER 00:14
DX: R41.82 Altered mental status, unspecified (principal); I10 Essential (primary) hypertension; E11.9 Type 2 diabetes mellitus without complications; K72.90 Hepatic failure, unspecified without coma; Z88.6 Allergy status to analgesic agent; Z60.2 Problems related to living alone; Z79.899 Other long term (current) drug therapy; W06.XXXA Fall from bed, initial encounter; Y93.89 Activity, other specified; Y92.89 Other specified places as the place of occurrence of the external cause; Y99.8 Other external cause status
CPT/HCPCS: 36415; 70450; 71045; 72125; 80053; 81001; 82140; 85025; 87086; 99285; J3490